=== PATIENT | male | born 1995 | race Caucasian/White ===

== ENCOUNTER 2025-07-17 18:01 | Emergency (ER) | payer SELFPAY ==
--- NOTE | ~2025-07-17 | XR_ITS ---
CLINICAL HISTORY: chest pain 2 view chest x-ray. Comparison: None Findings: No consolidation or effusion. Cardiac and mediastinal contours are unremarkable. Bones unremarkable. Impression: 1. No acute pulmonary disease. This document has been electronically signed by: Jose D Mayorga MD on 07/17/2025 18:59:18
--- NOTE | 2025-07-17 18:04 | ECG_ITS ---
Test Reason : CP Blood Pressure : */* mmHG Vent. Rate : 61 BPM Atrial Rate : 61 BPM P-R Int : 158 ms QRS Dur : 84 ms QT Int : 402 ms P-R-T Axes : 68 52 59 degrees QTcB Int : 404 ms Normal sinus rhythm Normal ECG No previous ECGs available Referred By: Generic ED Physician Electronically Signed By: Richard Gary
[2025-07-17 18:28] VITALS: BP 114/65; PULSE 65; RESP 18; TEMP 36.4; O2SAT 98; BMI 24.6
--- OUTSIDE RECORDS SUMMARY | 2025-07-17 18:29 | XMS_ITS | Clinical Summary ---
Author Organization [employer] Address [address] [place] [address] Care Team Providers Care Vehicle Assembler Name Role Phone Hernan Coleman MD Primary Care Provider Social History Tobacco Use Types Packs/Day Years Used Date Smoking Tobacco: Never Assessed Sex and Gender Information Value Date Recorded Sex Assigned at Male 07/09/2022 10:23 AM EDT Legal Sex Male 10:23 AM EDT Gender Identity Male 07/09/2022 10:23 AM EDT Sexual Orientation Straight 07/09/2022 10 :23 AM EDT Plan of Treatment Health Maintenance Due Date Last Done Comments Depression Screening 1994 HIV Screening 1994 SDOH Screening 1994 Disability Screening 1994 Alcohol/Substance Use Screening 2006 Tobacco Screening 2006 Family Planning (PISQ) 2009 Hepatitis A Vaccines (2 of 2 - 2-dose series) 10/14/2011 04/13/2011 Hepatitis C Screening 2012 HPV Vaccines (3 - Male 3-dose series) 12/08/2012 08/12/2012, 06/09/2012 COVID-19 Vaccine ( season) 2025 Influenza Vaccine (#1) 2025 8, 06/09/2012, 05/17/2009 DTaP/Tdap/Td Vaccines (8 - Td or Tdap) 02/21/2026 02/22/2016, 05/23/2006, 02/02/1999, Additional history exists Zoster Vaccines (1 of 2) 2044 RSV Patients and Patients Aged 60 years or older (1 - 1-dose 75+ series) 2069 HIB Vaccines Completed 07/10/1995, 10/10, 1994, Additional history exists IPV Vaccines Completed 02/02/1999, 10/10, 1994, Additional history exists Meningococcal Vaccine Aged Out 03/30/2008 No tyler jase eligible based on patient's age to complete this topic Hepatitis B Vaccines Completed 03/01/2016, 1994, 1994, Additional history exists Meningococcal B Vaccine Aged Out No l onger eligible based on patient's age to complete this topic Pneumococcal Vaccine: Pediatrics (0 to 5 Years) and At-Risk Patients (6 to 49) Years Aged Out No longer eligible based on patient's age to complete this topic RSV under 20 months Aged Out No longe r eligible based on patient's age to complete this topic Rotavirus Vaccines Aged Out No longer eligible based on patient's age to complete this topic Insurance [id number] Care Teams Vehicle Assembler Relationship Specialty Start Date End Date Hernan Coleman MD NPI: [id number] [place] [id number] PCP - General Internal Medicine 06/04/18
--- OUTSIDE RECORDS SUMMARY | 2025-07-17 18:29 | XMS_ITS | Encounter Summary ---
Author Organization [employer] [facility] Address [address] [address] [place] [id number] Care Team Providers Care Probation And Parole Officer Name Role Phone Hernan Coleman MD Primary Care Provider Encounter Details Date Type Department Care Team (Latest Contact Info) Description 02/02/2021 Abstract [facility] CONVERSIONS Dental, Provider, DDS Social History Tobacco Use Types Packs/Day Years Used Date Smoking Tobacco: Never Assessed Sex and Gender Information Value Date Recorded Sex Assigned at Male 07/09/2022 10:23 AM EDT Legal Sex Male 10:23 AM EDT Gender Identity Male 07/09/2022 10:23 AM EDT Sexual Orientation Straight 07/09/2022 10 :23 AM EDT documented as of this encounter Plan of Treatment Not on file documented as of this encounter Visit Diagnoses Not on filedocumented in this encounter Care Teams Probation And Parole Officer Relationship Specialty Start Date End Date Hernan Coleman MD [address] [place] [address] PCP - General Internal Medicine 06/04/18 documented as of this encounter
--- NOTE | 2025-07-17 18:30 | ED.CHESTPAIN ---
HPI - Chest Pain General Chief Complaint: Chest Pain Stated Complaint: CP Time Seen by Provider: 07/17/25 20:28 Source: patient and family (dad) Mode of arrival: ambulatory Limitations: no limitations History of Present Illness HPI narrative: 30-year-old who denies significant past medical history who presents for evaluation of left-sided chest wall pain after returning for work. 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 Patient states it may be related to this. He denies any direct trauma. Patient states after working today he noted sharp, left parasternal pain that radiated across the left side of his chest and into his armpit. He denies any shortness of breath. No recent travel. No fevers chills nausea or vomiting. He smokes tobacco and marijuana. Patient is otherwise feeling well. Related Data Previous Rx's ?Medication ?Instructions ?Recorded methocarbamol 750 mg tablet 750 mg PO TID PRN muscle spasm #20 07/17/25 tabs naproxen 500 mg tablet 500 mg PO BID PRN pain 7 days #14 07/17/25 tabs Allergies Allergy/AdvReac Type Severity Reaction Status Date / Time No Known Allergies Allergy Verified 07/17/25 18:29 Review of Systems Review of Systems: Yes all other systems are reviewed and are negative Cardiovascular: Cardiovascular: Reports chest pain Gastrointestinal: Gastrointestinal: Denies abdominal pain Physical Exam Vital Signs: Vital Signs: Last Vital Signs Temp 97.6 F 07/17/25 18:28 Pulse 65 07/17/25 18:28 Resp 18 07/17/25 18:28 BP 114/65 07/17/25 18:28 Pulse Ox 98 07/17/25 18:28 O2 Del Method Room Air 07/17/25 18:28 BMI result Body Mass Index 24.6 Const: General: cooperative, alert and awake Neck: Other: No spinous, paraspinous or paravertebral tenderness. No trapezius tenderness. Chest: Other: No lesions on the chest noted. There is mild left parasternal tenderness between the intercostal spaces at the level of approximately T4. Worse with movement of the left arm. Resp: Other: Lung sounds clear throughout. Back/Spine/Pelvis: Other: Recycling Operations Manager is 5/5 bilaterally. Full range of motion of all upper extremities. Mild left subscapular tenderness. No lesions noted. Course Course Course Narrative: Medical screening exam performed. Please refer to detailed history, exam, evaluation, and management by primary provider. Chest pain since yesterday, initially at rest, now worse with movement. No dyspnea on exertion. Labs and ekg ordered. JS Reevaluation(s) Reevaluation #1: Reviewed all labs and imaging with the patient and dad at the bedside. Low suspicion for cardiopulmonary process. Patient feels comfortable with discharge plan home. Reviewed all discharge instructions. No further questions at this time. Medical Decision Making Medical Decision Making [facility] Narrative: 30-year-old male who denies significant past medical history, left-sided chest pain that has been constant since returning from work this afternoon. Low suspicion for cardiopulmonary process given lack of risk factors. Easily reproducible on exam. Check labs, EKG and chest x-ray. Differential Diagnosis Differential Diagnoses: The differential diagnosis associated with the presentation includes ACS Chest wall muscle strain Costochondritis Pneumonia Admission/Observation Consideration of admission/observation: Escalation of care including admission/observation considered Lab Data [facility] Lab Attestation statement: I reviewed the patient's lab results. 07/17/25 19:56 07/17/25 19:56 Labs: Lab Results 07/17/25 Range/Units 19:56 WBC 10.4 (4.8-10.8) X10*3/uL RBC 5.45 (4.60-5.80) X10*6/uL Hgb 16.1 (14.0-18.0) g/dl Hct 46.2 (42.0-52.0) % MCV 84.8 (80.0-98.0) fL MCH 29.5 (27.0-33.0) pg MCHC 34.8 (31.0-36.0) g/dl RDW 13.1 (11.0-16.0) % Plt Count 217 (160-400) X10*3/uL MPV 10.2 (9.4-12.4) fL Immature Gran % (Auto) 0.4 (0.0-0.4) % Neut % (Auto) 49.5 (45-73) % Lymph % (Auto) 39.5 (20-40) % [place] % (Auto) 8.8 (2-11) % Eos % (Auto) 1.4 (0-4) % Baso % (Auto) 0.4 (0-2) % Lymph # (Auto) 4.1 (1.2-4.9) X10*3/uL Chester # (Auto) 0.9 (0.1-1.2) X10*3/uL Eos # (Auto) 0.2 (0.0-0.4) X10*3/uL Baso # (Auto) 0.0 (0.0-0.2) X10*3/uL Abs Immat Gran (auto) 0.04 H (0.00-0.03) X10*3/uL Absolute Neuts (auto) 5.2 (2.0-8.3) x10*3/uL Absolute Nucleated RBC 0.000 (0.0-0.012) X10*3/uL Nucleated RBC % (auto) 0.0 (0.0-0.2) /100WBC Sodium 141 (135-145) mmol/L Potassium 3.6 (3.3-5.1) mmol/L Chloride 108 (96-108) mmol/L Carbon Dioxide 21 L (22-29) mmol/L Anion Gap 16 (12-20) BUN 12 (9-16) mg/dL Creatinine 1.09 (0.5-1.4) mg/dL Estim Creat Clear Calc 101.3 Estimated GFR > 60 Random Glucose 92 (60-115) mg/dL Calcium 9.2 (8.4-10.2) mg/dL Total Bilirubin 0.6 (0.0-1.0) mg/dL AST 19 (5-37) U/L ALT 18 (0-40) U/L Alkaline Phosphatase 83 (39-117) U/L Troponin I High Sens < 2.7 (<3.5-35.0) ng/L Total Protein 6.9 (6.5-8.0) g/dL Albumin 4.5 (3.5-5.0) g/dL Lipase 17 (8-78) U/L Radiology Impression Discussion of test interpretation with radiology: I have reviewed the radiologist's reading. Prescription Management I considered prescription management with: Pain Medication Scores Heart Score History: -0- slightly suspicious ECG: -0- normal Age: -0- < or = 45 Risk factory: -1- 1 or 2 risk factors Troponin: -0- < or = normal limit Score: 1 Risk: 1.7% Discharge Plan Discharge Clinical Impression: Acute chest wall pain Patient Disposition: Home, Self-Care Instructions: Chest Wall Pain (ED) Additional Instructions: Rest. Avoid strenuous activity. Naproxen as directed for pain and inflammation. Robaxin as directed for pain and muscle spasm. Follow-up with your primary care provider. Call this week to schedule a follow-up appointment. Return to the emergency department if you have any worsening of symptoms, or any concerns. Get well soon! Prescriptions: New methocarbamol 750 mg tablet 750 mg PO TID PRN (Reason: muscle spasm) Qty: 20 0RF naproxen 500 mg tablet 500 mg PO BID PRN (Reason: pain) 7 Days Qty: 14 0RF Rx Instructions: Take with food. Print Language: Amharic
[2025-07-17 20:03] LABS: MANUAL DIFF FLAG NO
[2025-07-17 20:18] LABS: Alanine Aminotransferase 18 U/L (0-40); Albumin Level 4.5 g/dL (3.5-5.0); Alkaline Phosphatase 83 U/L (39-117); Anion Gap 16 (12-20); Aspartate Amino Transferase 19 U/L (5-37); Blood Urea Nitrogen 12 mg/dL (9-16); Calcium 9.2 mg/dL (8.4-10.2); Carbon Dioxide 21 mmol/L (22-29); Chloride 108 mmol/L (96-108); Creatinine Clr Calc Pharmacy 101.3; Estimated Glomerular Filt Rate > 60; Lipase 17 U/L (8-78); Potassium 3.6 mmol/L (3.3-5.1); Sodium 141 mmol/L (135-145); Total Protein 6.9 g/dL (6.5-8.0)
[2025-07-17 20:24] LABS: Hematocrit 46.2 % (42.0-52.0); Hemoglobin 16.1 g/dl (14.0-18.0); Imm Gran Abs Auto 0.04 X10*3/uL (0.00-0.03); Imm Gran Pct Auto 0.4 % (0.0-0.4); Lymphocytes Absolute Auto 4.1 X10*3/uL (1.2-4.9); Mean Corpuscular HGB Conc 34.8 g/dl (31.0-36.0); Mean Corpuscular Hemoglobin 29.5 pg (27.0-33.0); Mean Corpuscular Volume 84.8 fL (80.0-98.0); NRBC Abs Auto 0.000 X10*3/uL (0.0-0.012); NRBC Pct Auto 0.0 /100WBC (0.0-0.2); Platelet Count 217 X10*3/uL (160-400); Red Blood Count 5.45 X10*6/uL (4.60-5.80); White Blood Count 10.4 X10*3/uL (4.8-10.8)
[2025-07-17 20:27] LABS: Troponin-I High Sensitivity < 2.7 ng/L (<3.5-35.0)
[2025-07-17 20:48] VITALS: BP 116/62; PULSE 58; RESP 16; TEMP 36.2; O2SAT 97
[2025-07-17 20:49] VITALS: BP 116/62; PULSE 58; RESP 16; TEMP 36.2; O2SAT 97
== END 2025-07-17 20:50 | disposition home or self-care (01) ==
PROVIDERS: Physician Assistant; Emergency Provider Emergency Medicine
DX: R07.89 Other chest pain (principal)
CPT/HCPCS: 36415; 71046; 80053; 83690; 84484; 85025; 93005; 99283; 99284

== ENCOUNTER → 2025-07-17 18:04 | Outpatient (BNV) | payer SELFPAY | PROVIDERS: Emergency Provider Emergency Medicine; Visit Provider Internal Medicine Cardiovascular Disease | DX: R07.9 Chest pain, unspecified (principal) | CPT/HCPCS: 93010 ==

== ENCOUNTER → 2025-07-17 18:31 | Outpatient (BNV) | payer SELFPAY | PROVIDERS: Visit Provider Radiology Diagnostic Radiology | DX: R07.9 Chest pain, unspecified (principal) | CPT/HCPCS: 71046 ==